=== PATIENT | female | born 1970 | race Hispanic/Latino ===

== ENCOUNTER → 2019-09-12 | Day surgery (SDC) | payer OTHER ==
[~2019-09-12] MED LIST: DOXEPIN HCL25 MG PO; HYOSCYAMINE 0.125 MG TAB ONE; KETAMINE HCL INJ 50 MG/ML 10 ML VIAL ONE; LIDOCAINE HCL 2% LOCAL INJ 5 ML SDV VIAL INJ ONE; MIDAZOLAM HCL 2 MG/2 ML VIAL ONE; PROPOFOL IV EMULSION 10 MG/ML 20 ML VIAL ONE; TERBINAFINE HC250 MG PO
[2019-09-12 10:35] VITALS: BP 113/77
--- NOTE | 2019-09-12 11:17 | Operative Report ---
DATE OF PROCEDURE: 09/12/2019 SURGEON: Dru Sampson MD PROCEDURE: Colonoscopy with biopsies. INDICATION FOR COLONOSCOPY: History of bright red blood per rectum. MEDICATIONS: The patient was done under MAC, please see anesthesiologist's note. PROCEDURE IN DETAIL: With the patient if lateral decubitus position, a flexible fiberoptic Olympus colonoscope was inserted into the rectum with ease and advanced all the way to the cecum. Mucosa overlying the cecum appeared to be within normal limits. There was a minute submucosal nodule was noted in the ileocecal valve and that was biopsied. The scope was then withdrawn slowly. Mucosa overlying the ascending, transverse, descending, and sigmoid colon appeared to be within normal limits. An approximately 3 mm submucosal nodule was noted in the distal rectum and that was biopsied. The scope was then retroflexed into the distal rectum and small internal hemorrhoids were noted, none of which was actively bleeding. The scope was then straightened out, it was subsequently withdrawn. The patient tolerated the procedure well. IMPRESSION: 1. Submucosal nodule, ileocecal valve, biopsied. 2. Rectal submucosal nodule, biopsied. 3. Internal hemorrhoids, none actively bleeding. PLAN: Follow up histology. Initiate high-fiber, low-fat diet. Initiate high-fiber supplement. Start Anucort-HC suppositories b.i.d. x10 days and then p.r.n., also VSL#3 one p.o. b.i.d. Dru Sampson MD [facility] [place] [place][id number] cc: Noble Mercado MD
== END | disposition home or self-care (01) ==
LOC: OR 08:31
PROVIDERS: ATTEND Internal Medicine Gastroenterology
DX: K62.5 Hemorrhage of anus and rectum (principal); K64.8 Other hemorrhoids; K63.89 Other specified diseases of intestine; K62.89 Other specified diseases of anus and rectum; K59.09 Other constipation; Z01.812 Encounter for preprocedural laboratory examination; Z11.59 Encounter for screening for other viral diseases; Z68.29 Body mass index [BMI] 29.0-29.9, adult
CPT/HCPCS: 45378; 45380; 81025; 87635; J2001; J2250

== ENCOUNTER → 2020-05-09 | Day surgery (SDC) | payer OTHER ==
[~2020-05-09] MED LIST changes: +AMOXICILLIN250 MG PO; +FENTANYL CITRATE/PF 100MCG/2 ML INJ ONE; -HYOSCYAMINE 0.125 MG TAB ONE; -KETAMINE HCL INJ 50 MG/ML 10 ML VIAL ONE; +ZOLPIDEM TARTRAT5 MG PO
[2020-05-09 15:55] VITALS: BP 109/73
== END | disposition home or self-care (01) ==
LOC: OR 14:01
PROVIDERS: ATTEND Internal Medicine Gastroenterology
DX: K29.50 Unspecified chronic gastritis without bleeding (principal); K31.7 Polyp of stomach and duodenum; K20.90 Esophagitis, unspecified without bleeding; K31.89 Other diseases of stomach and duodenum; D72.820 Lymphocytosis (symptomatic); K59.09 Other constipation; D50.9 Iron deficiency anemia, unspecified; Z01.812 Encounter for preprocedural laboratory examination; Z20.828 Contact with and (suspected) exposure to other viral communicable diseases; Z68.29 Body mass index [BMI] 29.0-29.9, adult
CPT/HCPCS: 43239; 81025; J2001; J2250; J2704; J3010; U0002

== ENCOUNTER → 2021-04-16 | Outpatient (CLI) | payer OTHER ==
[~2021-04-16] MED LIST changes: -FENTANYL CITRATE/PF 100MCG/2 ML INJ ONE; -LIDOCAINE HCL 2% LOCAL INJ 5 ML SDV VIAL INJ ONE; -MIDAZOLAM HCL 2 MG/2 ML VIAL ONE; -PROPOFOL IV EMULSION 10 MG/ML 20 ML VIAL ONE
== END ==
LOC: DX 08:35
PROVIDERS: ATTEND Internal Medicine Gastroenterology
DX: D50.9 Iron deficiency anemia, unspecified (principal); Z20.822 Contact with and (suspected) exposure to COVID-19
CPT/HCPCS: 74250; U0002

== ENCOUNTER → 2024-01-01 | Day surgery (SDC) | payer OTHER ==
[~2024-01-01] MED LIST changes: +ATROPINE SULFATE 1 MG/ML VIAL ONE; +GLYCOPYRROLATE INJ 0.2 MG/ML VIAL ONE; +LEVOTHYROXINE50 MCG PO; +LIDOCAINE HCL 2% LOCAL INJ 5 ML SDV VIAL INJ ONE; +MIDAZOLAM HCL 2 MG/2 ML VIAL ONE; +OZEMPIC0.25 MG/02 SC; +PROPOFOL IV EMULSION 10 MG/ML 20 ML VIAL ONE; +PROPOFOL IV EMULSION 10 MG/ML 50 ML VIAL IV ONE
[2024-01-01] MEDS: LACTATED RINGER'S 1,000 ML ONE (10:34)
[2024-01-01 13:34] VITALS: TEMP 98.4
[2024-01-01 13:45] VITALS: BP 107/71; PULSE 81; RESP 16; O2SAT 99
[2024-01-06 08:15] LABS: ENDOMYSIAL ANTIBODIES, IGA Negative (Negative)
[2024-01-07 05:18] LABS: IMMUNOGLOBULIN A 123 mg/dL (87-352); TISSUE TRANSGLUTAMINASE IGA AB <2 U/mL (0-3)
== END | disposition home or self-care (01) ==
LOC: OR 10:11
PROVIDERS: ATTEND Internal Medicine Gastroenterology
DX: K29.40 Chronic atrophic gastritis without bleeding (principal); K31.89 Other diseases of stomach and duodenum; K20.90 Esophagitis, unspecified without bleeding; K31.A0 Gastric intestinal metaplasia, unspecified; K59.09 Other constipation; K62.89 Other specified diseases of anus and rectum; K64.8 Other hemorrhoids; Z71.3 Dietary counseling and surveillance; D64.9 Anemia, unspecified; E66.01 Morbid (severe) obesity due to excess calories; E03.9 Hypothyroidism, unspecified; N39.0 Urinary tract infection, site not specified; Z01.810 Encounter for preprocedural cardiovascular examination; Z79.85 Long-term (current) use of injectable non-insulin antidiabetic drugs; Z79.899 Other long term (current) drug therapy; Z68.29 Body mass index [BMI] 29.0-29.9, adult
CPT/HCPCS: 43239; 45378; 81025; 82784; 83516; 86256; 93005; J0461; J2001; J2250; J2470; J2704 ×2; J7121